=== PATIENT | female | born 1990 | race African-American/Black ===

== ENCOUNTER 2018-09-14 12:30 | Inpatient (IN) ==
[2018-09-18] MEDS ORDERED: KEFZOL 1 GM/D5W 1 GM/50 ML IVPB IV PRN (04:57)
[2018-09-18] MEDS ORDERED: REGLAN IV ONE (05:15)
[2018-09-18] MEDS ORDERED: BICITRA PO ONE (05:15)
[2018-09-18] MEDS ORDERED: PEPCID PO ONE (05:15)
[2018-09-18] MEDS: LR 1,000 ML IV SCH ×2 (05:30→06:20)
[2018-09-18 06:15] LABS: URINE SOURCE VOIDED
[2018-09-18 06:18] LABS: BASO% 0.1 % (0.0-0.8); EOS% 0.6 % (0.0-10.0); HEMATOCRIT 37.8 % (37.0-47.0); HEMOGLOBIN 13.3 g/dL (12.0-16.0); IMM GRAN% 0.1 % (0.0-0.5); MCH 32.3 PG (27-31); MCHC 35.2 g/dL (33-37); MCV 91.7 FL (81-99); MONO% 6.8 % (1.7-9.3); MPV 12.7 FL (7.4-10.4); NEUT% 72.4 % (42.2-75.2); PLT 149 X1000 (130-400); RBC 4.12 XMIL (4.2-5.4); RDW 13.6 % (11.5-14.5); WBC 13.75 X1000 (4.8-10.8)
[2018-09-18 06:19] LABS: BASO# 0.01 X1000 (0.0-0.2); EOS# 0.08 X1000 (0.0-0.7); IMM GRAN# 0.02 X1000 (0.0-0.04); LYMPH# 2.75 X1000 (1.2-3.4); MONO# 0.94 X1000 (0.11-0.59); NEUT# 9.95 X1000 (1.4-6.5)
[2018-09-18 06:28] LABS: BILIRUBIN URINE NEGATIVE (NEGATIVE); BLOOD URINE 1+ (NEGATIVE); CLARITY CLEAR (CLEAR); COLOR YELLOW; GLUCOSE URINE NEGATIVE (NEGATIVE); KETONE URINE NEGATIVE (NEGATIVE); LEUKOCYTES URINE NEGATIVE (NEGATIVE); NITRITE URINE NEGATIVE (NEGATIVE); PROTEIN URINE NEGATIVE (NEGATIVE); UROBILINOGEN URINE NORMAL
[2018-09-18 06:38] LABS: UR AMPHETAMINES QUAL NONE DETECTED (NONE DETECT); UR BARBITUATES QUAL NONE DETECTED (NONE DETECT); UR BENZODIAZEPIN QUAL NONE DETECTED (NONE DETECT); UR CANNABINOIDS QUAL NONE DETECTED (NONE DETECT); UR COCAINE QUAL NONE DETECTED (NONE DETECT); UR METHADONE QUAL NONE DETECTED (NONE DETECT); UR METHAMPHETAMINE QUAL NONE DETECTED (NONE DETECT); UR OPIATES QUAL NONE DETECTED (NONE DETECT); UR OXYCODONE QUAL NONE DETECTED (NONE DETECT); UR PCP QUAL NONE DETECTED (NONE DETECT); UR PROPOXYPHENE QUAL NONE DETECTED (NONE DETECT); UR TCA QUAL NONE DETECTED (NONE DETECT)
--- NOTE | 2018-09-18 06:56 | H&P REVIEW ---
H&P Update H&P Review: H&P was reviewed and patient was examined, No change has occurred in the patient's condition
[2018-09-18] MEDS ORDERED: KEFZOL 1 GM/D5W 1 GM/50 ML IVPB IV ONE (06:57)
[2018-09-18] MEDS ORDERED: DURAMORPH ONE (07:07)
[2018-09-18] MEDS ORDERED: PITOCIN ONE (07:08)
[2018-09-18] MEDS ORDERED: EPHEDRINE ONE (07:09)
[2018-09-18] MEDS ORDERED: ZOFRAN ONE (07:59)
[2018-09-18] MEDS ORDERED: TORADOL ONE (07:59)
[2018-09-18] MEDS ORDERED: SODIUM CHLORIDE 0.9% 10 ML ONE (07:59)
[2018-09-18] MEDS ORDERED: DULCOLAX PR PRN (08:04)
[2018-09-18] MEDS ORDERED: DEMEROL IM PRN (08:04)
[2018-09-18] MEDS ORDERED: HYDROXYZINE IM PRN (08:04)
[2018-09-18] MEDS ORDERED: PHENERGAN IM PRN (08:04)
[2018-09-18] MEDS ORDERED: M-M-R II VACCINE SUBQ ONE (08:04)
[2018-09-18] MEDS ORDERED: DEMEROL PO PRN ×2 (08:04)
[2018-09-18] MEDS ORDERED: BOOSTRIX VACCINE IM ONE (08:04)
[2018-09-18] MEDS ORDERED: PITOCIN IM PRN (08:04)
[2018-09-18] MEDS ORDERED: AMBIEN PO PRN (08:04)
[2018-09-18] MEDS ORDERED: PITOCIN 20 UNITS/NS 20 UNITS/1,000 ML IV.SOLN IV ONE (08:04)
[2018-09-18] MEDS ORDERED: MYLICON PO PRN (08:04)
[2018-09-18] MEDS ORDERED: ATARAX PO PRN (08:04)
[2018-09-18] MEDS ORDERED: PRILOSEC PO PRN (08:07)
[2018-09-18] MEDS ORDERED: NARCAN INJ PRN (08:30)
[2018-09-18] MEDS ORDERED: BENADRYL IV PRN (08:30)
[2018-09-18] MEDS ORDERED: ZOFRAN IV PRN ×2 (08:30)
[2018-09-18] MEDS ORDERED: ZOFRAN ODT PO PRN (08:30)
[2018-09-18] MEDS: SUBUTEX SL SCH ×2 (08:58→16:44)
[2018-09-18] MEDS: MYLICON PO SCH ×4 (08:59→20:24)
--- NOTE | 2018-09-18 09:14 | HISTORY AND PHYSICAL ---
HISTORY OF PRESENT ILLNESS: Mrs. Sanchez is a 28-year-old female G2, P1-0-0-1 at 39 weeks and 0 days with estimated due date of 09/21/2018 based on last menstrual period confirmed with 20 week ultrasound who presents for scheduled repeat delivery with bilateral tubal ligation. The patient reports good movement, denies contractions, leakage of fluid, bleeding, fevers, chills, nausea, vomiting, shortness of breath or chest pain. PAST MEDICAL HISTORY: Polysubstance abuse, IV drug user, hepatitis C, GERD. MEDICATIONS: vitamin, Subutex 24 mg daily, Prilosec. SURGICAL HISTORY: delivery x1. OBSTETRICAL HISTORY: G2, P1-0-0-1, 1 . 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 Menarche age 13. SOCIAL HISTORY: Positive tobacco use half a pack per day. Positive Subutex use. Denies alcohol use. FAMILY HISTORY: Noncontributory. ALLERGIES: No known drug allergies. PHYSICAL EXAMINATION: VITAL SIGNS: Temperature 98.2 degrees, blood pressure 123/77, pulse rate 101, weight 170 pounds. GENERAL: No acute distress. CARDIOVASCULAR: Regular rate and rhythm. Positive S1, S2. RESPIRATORY: Clear to auscultation bilaterally. ABDOMEN: G:ravid, nontender to palpation. Fundal height 38 cm. heart rate 145 beats per minute. EXTREMITIES +1 lower extremity edema. No pitting edema. No calf tenderness. LABORATORY: Rubella nonimmune. ASSESSMENT: Mrs. Sanchez is a 28-year-old G2, P1-0-0-1 at 39 weeks and 0 days who presents for repeat section with bilateral tubal ligation. PLAN: 1. Admit to Labor and Delivery for repeat with bilateral tubal ligation . 2. Risks, benefits and alternatives of procedure were reviewed with patient. The patient understands risks not limited to pain, bleeding, injury to surrounding organs including bowel, bladder or ureters. All questions were addressed and consent signed. 3. Reviewed risks of bilateral tubal ligation not limited to regret, failure and ectopic . Patient counseled on long acting contraceptive reversible methods as well as vasectomy options. Medicare sterilization form consent signed more than 30 days prior to procedure. 4. Obtain routine labs for repeat . 5. NST monitoring prior to repeat . 6. 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 7. Will continue Subutex along with additional routine pain management status post delivery.
[2018-09-18] MEDS: MORPHINE IV PRN ×7 (09:26→23:39)
[2018-09-18] MEDS: OFIRMEV 1000 MG/ISOTONIC SOLN 1,000 MG/100 ML BOTTLE IV SCH ×3 (10:42→23:39)
[2018-09-18] MEDS: TORADOL IV SCH ×2 (13:51→20:24)
[2018-09-18] MEDS ORDERED: PITOCIN 10 UNITS/NS 1,000 ML ONE (17:07)
[2018-09-18] MEDS: PITOCIN IV SCH (18:12)
[2018-09-18] MEDS: NS IV SCH (18:12)
[2018-09-18] MEDS: PERICOLACE PO SCH (20:24)
[2018-09-19] MEDS: SUBUTEX SL SCH ×3 (00:51→16:57)
[2018-09-19] MEDS: PITOCIN IV SCH (02:42)
[2018-09-19] MEDS: NS IV SCH (02:42)
[2018-09-19] MEDS: TORADOL IV SCH (02:43)
[2018-09-19] MEDS: OFIRMEV 1000 MG/ISOTONIC SOLN 1,000 MG/100 ML BOTTLE IV SCH (04:48)
[2018-09-19] MEDS: MORPHINE IV PRN ×2 (04:48→08:03)
--- NOTE | 2018-09-19 07:13 | OB/GYN PROGRESS NOTE ---
Progress Note OB - . Patient Problems: Current Active Problems Problem Status Onset delivery delivered Acute Polysubstance (including opioids) dependence with physiol dependence Acute Hepatitis C carrier Acute OB Progress Note: Vital Signs - 24 hr 09/18/18 08:10 09/18/18 08:20 09/18/18 08:30 Temperature 96.5 F L Pulse Rate 85 71 70 Respiratory Rate 20 20 20 Blood Pressure Blood Pressure [Right Arm] 111/68 111/58 111/68 O2 Sat by Pulse Oximetry 98 100 100 09/18/18 08:40 09/18/18 08:50 09/18/18 09:00 Temperature Pulse Rate 71 70 60 Respiratory Rate 20 20 20 Blood Pressure Blood Pressure [Right Arm] 114/74 112/72 109/68 O2 Sat by Pulse Oximetry 100 100 100 09/18/18 09:10 09/18/18 13:40 09/18/18 14:40 Temperature 97.8 F Pulse Rate 72 68 80 Respiratory Rate 20 20 20 Blood Pressure 112/71 110/54 94/52 Blood Pressure [Right Arm] 113/76 O2 Sat by Pulse Oximetry 99 97 100 09/18/18 16:37 09/18/18 20:26 09/18/18 23:42 Temperature 97.8 F 97.0 F L 97.9 F Pulse Rate 69 73 74 Respiratory Rate 20 18 18 Blood Pressure 95/51 109/52 101/56 Blood Pressure [Right Arm] O2 Sat by Pulse Oximetry 98 99 98 09/19/18 04:43 Temperature 97.0 F L Pulse Rate 68 Respiratory Rate 18 Blood Pressure 128/62 Blood Pressure [Right Arm] O2 Sat by Pulse Oximetry 97 Laboratory Results - last 24 hr 09/18/18 05:30 Blood Type A POSITIVE Antibody Screen NEGATIVE HPI: Pt seen and examined. C/o poor pain control. Taking Subtex and IV pain meds w/o relief. Tolerating regular diet. Denies nausea/vomiting/flatus/fever/chills VS: please see above GEN: NAD CV: RRR, S1S2 RESP: CTA b/l ABD: soft, appropriately tender to palpation INC: dressing clean and dry EXT: neg calf tenderness LABS: please see above ASSESSMENT: 27yo POD#1, s/p repeat CD with BTL PLAN: -continue IV pain meds and subutex for pain mgt -advance to regular diet -OOB to ambulation -d/c sorto -con't routine PP care
[2018-09-19 07:32] LABS: HEMOGLOBIN 10.9 g/dL (12.0-16.0); MCH 31.1 PG (27-31); MPV 12.4 FL (7.4-10.4); RBC 3.51 XMIL (4.2-5.4); RDW 13.9 % (11.5-14.5); WBC 10.61 X1000 (4.8-10.8)
[2018-09-19] MEDS ORDERED: LR 1,000 ML IV SCH (08:04)
[2018-09-19] MEDS: MYLICON PO SCH ×4 (09:13→21:34)
[2018-09-19] MEDS: PERCOCET-10 PO PRN ×5 (09:56→22:29)
[2018-09-19] MEDS: MOTRIN PO PRN ×2 (09:56→19:26)
[2018-09-19] MEDS: PERICOLACE PO SCH (21:34)
[2018-09-20] MEDS: SUBUTEX SL SCH ×3 (01:38→16:44)
[2018-09-20] MEDS: PERCOCET-10 PO PRN ×4 (01:38→16:44)
--- NOTE | 2018-09-20 07:43 | OB/GYN PROGRESS NOTE ---
Progress Note OB - . Patient Problems: Current Active Problems Problem Status Onset Hepatitis C carrier Acute Polysubstance (including opioids) dependence with physiol dependence Acute delivery delivered Acute OB Progress Note: Vital Signs - 24 hr 09/19/18 07:45 09/19/18 11:50 09/19/18 16:00 Temperature 97.2 F L 96.8 F L 97.9 F Pulse Rate 72 74 72 Respiratory Rate 16 18 14 Blood Pressure 122/75 149/72 110/56 O2 Sat by Pulse Oximetry 99 97 97 09/19/18 21:25 09/20/18 01:45 09/20/18 04:18 Temperature 96.9 F L 97 F L 96.8 F L Pulse Rate 91 H 88 74 Respiratory Rate 20 18 18 Blood Pressure 125/79 125/71 103/56 O2 Sat by Pulse Oximetry 97 97 97 Pt resting in bed. She desires pain medication. Tolerating po well no N/V bottlefeeding O VSSAF Gen: AAox3 NAD CV: RRR no g/m/r Lungs: CTAB no w/r/r Abd: +BS soft NT/ND incision c/d/i Ext: no c/c/e A: POD#2 s/p RLTCS with BTL P: Cont post-op mgmt
[2018-09-20] MEDS: MOTRIN PO PRN (08:34)
[2018-09-20] MEDS: MYLICON PO SCH ×2 (08:34→12:30)
[2018-09-20 15:43] VITALS: BP 126/67
--- NOTE | 2018-09-29 09:51 | OPERATIVE NOTE ---
PROCEDURE DATE: 09/18/2018 SURGEON: Dr. Pikny Dominguez. ELECTRIC POWER LINE EXAMINER: Dr. Cesar De La Cruz. PREOPERATIVE DIAGNOSIS: Blankenship intrauterine at 39+ weeks, prior section times 1, multigravida, desires female sterilization. POSTOPERATIVE DIAGNOSIS: Blankenship intrauterine at 39+ weeks, prior section times 1, multigravida, desires female sterilization. PROCEDURE PERFORMED: Repeat low transverse section with bilateral tubal ligation. ANESTHESIA: Spinal. ESTIMATED BLOOD LOSS: 700 mL. COMPLICATIONS: None. DESCRIPTION OF PROCEDURE IN DETAIL: The patient was taken to the operating room where a time-out was performed to confirm correct patient and correct procedure. Spinal anesthesia was adequately established, and prophylactic intravenous antibiotics were administered. The patient was then placed in a dorsal supine position with a left tilt of the hips. The patient was then prepped and draped in the usual sterile fashion for a Pfannenstiel skin incision. An incision was made in the skin with a surgical scalpel, and sharp dissection was carried out over subsequent layers of tissue, including the fascia, followed by the Bovie electrocautery for hemostasis. The fascia was incised at the midline and the incision was extended bilaterally using the Bovie electrocautery. The inferior edge of the fascial incision was grasped with Emiliano clamps, tented up and the underlying rectus muscle was dissected off bluntly and sharply using the curved Phelan scissors and Bovie electrocautery. Attention was then turned to the superior edge, which was grasped with Emiliano clamps, tented up and the underlying rectus muscles were dissected off using the Bovie electrocautery. The rectus muscles were then divided in the midline. The peritoneum was identified and tented up with hemostats at its upper margin, taking care to avoid the bladder, and then entered sharply using Metzenbaum scissors. The peritoneal incision was extended superiorly and inferiorly using Bovie electrocautery with good visualization of the bladder. The bladder blade was inserted and the vesicouterine peritoneum was identified and grasped with forceps and cut laterally to both sides using Metzenbaum scissors. A bladder flap was then created using blunt and sharp dissection with the Metzenbaum scissors. The bladder blade was reinserted, and a transverse incision was made in the lower uterine segment using the scalpel. The uterine incision was extended bilaterally using blunt dissection. The amniotic sac was entered, and the amniotic fluid was noted to be clear. The surgeon's hand was placed into the uterine cavity. The head was identified, elevated into the abdomen and delivered through the uterine incision with the assistance of fundal pressure. The infant was examined for nuchal cord. No nuchal cord was identified. The was then delivered with traction and the assistance of fundal pressure. The 's oral and nasal passages were bulb suctioned on delivery. The cord was clamped and cut. The infant was then passed off the table to the awaiting pediatricians for further care. Cord blood was obtained for analysis and routine blood testing. The placenta was delivered manually intact with three-vessel cord. Oxytocin was administered by IV infusion to enhance uterine contraction. The uterus was exteriorized and cleared of all clots and remaining products of conception. The uterine incision was reapproximated using 1-0 Monocryl absorbable suture in a running locked fashion. Non hemostatic areas were reinforced using 1-0 Monocryl absorbable suture in a [id number] stitch. Good hemostasis was confirmed. The uterus was then readjusted forward to assess fallopian tubes. After identification of both fallopian tubes and fimbriated ends, a Waite clamp was used to grasp the right fallopian tube at the ampulla. A hemostat was used to clear a hole in the mesosalpinx directly below the elevated portion of the fallopian tube. The fallopian tube was suture ligated using 0 chromic suture at either end. The 2 cm portion of fallopian tube between the sutures was then excised using Metzenbaum scissors and sent to Pathology. The identical procedure was performed on the other side and hemostasis was noted bilaterally. The uterus was then replaced into the abdomen and pericolic colic gutters were cleared of all clots. The fascia was reapproximated using 0 Vicryl in a running nonlocking fashion. The skin was reapproximated using 4-0 Monocryl on a Alex stitch insert in a running subcuticular stitch. All needle, sponge, and instrument counts were counted and noted to be correct x2. At the end of the procedure, the patient tolerated the procedure well and transferred to recovery room in stable condition.
== END 2018-09-20 17:05 | disposition home or self-care (01) | DRG 784 ==
LOC: P.LD 09-18 04:50
PROVIDERS: ADMIT Obstetrics & Gynecology; ATTEND Obstetrics & Gynecology
CPT/HCPCS: 80104; 80301; 80305; 81003; 85025; 85027; 86592; 86850; 86900; 86901; 90707; 94799; A9270; G0431; G0434; G0477; J0131; J0690; J1885; J2270; J2274; J2275; J2405; J2590; J2765; J7030; J7120; Q9974